=== PATIENT | female | born 1930 | race Caucasian/White ===

== ENCOUNTER → 2017-02-17 | Outpatient (CLI) | payer MEDICARE ==
[~2017-02-17] MED LIST: ALIGN4 MG PO; ALLEGRA PO; ASMANAX; ASMANEX0.135 GM IH; ASPIRIN PO; AZELASTINE; CEFTAZIDIME IJ; CELEBREX PO; CENTRUM PO; CENTRUM ULTRA1 EACH PO; CITRACAL + D CA1 TA1 PO; CITRACAL200 M1 PO; DICYCLOMINE PO; EFFER-K 20 MEQ20 MEQ PO; FLUNISOLIDE NASAL; MUCINEX PO; NEURONTIN PO; NON-ASPIRIN EX500 M2 PO; OCUVITE PO; OCUVITE TABLET1 TA1 PO; OMNARIS12.5 GM IH; OMNARIS12.5 GM NS; SINGULAIR PO; SINGULAR PO; SYNTHROID PO; SYNTHROID88 MCG PO; SYSTANE 0.3-0.415 ML OU; TAMIFLU75 M1 PO; TRAMADOL PO; ULTRAM ER200 MG PO; ULTRAM PO; VITAL-D RX TABL1 TAB PO; VITAMIN D1000 UNI1 PO; ZYRTEC10 M1 PO; [UNRECOGNIZED DRUG - OTHER]; [UNRECOGNIZED DRUG - OTHER] IJ
--- NOTE | ~2017-02-17 | CT57 ---
[facility] A Service of [facility] & [facility] RADIOLOGY TEXT RESULTS PATIENT: MARGARITA HAWK LOCATION: [facility] : 30 UNIT #: [id number] AGE: [address]: Love Cisneros SEX: F ORDER DR: [id number] [address] [id number] [id number] P MR#: [id number] Acc #: [id number] NAME: MARGARITA HAWK : 1930 SEX: F STUDY DATE/TIME: 02/17/2017 10:50 UNIT: [facility] ROOM: STUDY DESCRIPTION: CT Chest Wo Cont Attending Physician: Love Cisneros A.P.R.N. Ordering Physician: Love Cisneros A.P.R.N. Primary Care Physician: Caryn Sweeney M.D. MEDICAL IMAGING REPORT This report is preliminary unless electronic signature is present. EXAM CT chest without contrast high resolution, 02/17/2017 10:50 hours HISTORY 87-year-old woman with history of cough, bronchitis for several years. Abnormal chest x-ray, evaluate for interstitial lung disease. COMPARISON Chest CT 10/19/2006 and portable chest exam 06/27/2011, chest x-ray 10/07/2016. TECHNIQUE Routine helical noncontrasted images were obtained from the thoracic inlet through the upper abdomen. Patient then underwent high-resolution exam with 1.0 mm thick high-resolution images at 10.0 mm intervals at full inspiration in the supine position. Similar high-resolution expiratory phase images were obtained at the arch, alex and lung bases. The patient was turned to the prone position for high-resolution images through the lung bases only. No contrast was administered. Total exam DLP 311 mGy-cm. This CT exam was performed with one or more of the following radiation dose reduction techniques: automatic exposure control, adjustment of mA and/or kV according to patient size, and iterative reconstruction. FINDINGS The routine helical chest CT demonstrates no thyroid mass or supraclavicular adenopathy. 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 There are coarse coronary calcifications. Cardiac chambers and pericardium are normal. There is a small hiatal hernia. [facility]. [facility] A Service of [facility] RADIOLOGY TEXT RESULTS PATIENT: MARGARITA HAWK LOCATION: [facility] : 30 UNIT #: [id number] AGE: [address]: Love Cisneros SEX: F ORDER DR: The routine lung window exam demonstrates areas of band-like scarring at the apices, increased from 2007. There are peripheral reticular nodular densities in both upper lobes and lower lobes resulting in traction bronchiectasis most prominent in the left upper lobe in the lingula, medially in the right middle lobe with diffuse peribronchiolar wall thickening seen in the left lower lobe greater than right lower lobe. These changes were partially present on the 2007 CT but have progressed, particularly in the left lower lobe. There is no suspicious mass. The biapical scarring is new or increased. The high-resolution exam demonstrates moderate centrilobular emphysema with large blebs or bullae. There is mild air trapping on the expiratory phase images. 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 There is no adrenal mass. There are calcified granulomatous changes. IMPRESSION 1. Abnormal chest CT with reticulonodular changes superimposed upon moderate centrilobular emphysema. These findings result in traction bronchiectasis most prominent in the right lung in the region of the right middle lobe and proximal right lower lobe and in the lingular segment of the left upper lobe. There is peribronchiolar wall thickening and bronchiectasis in the left lower lobe greater than right lower lobe. Some of these findings were present on the 2007 CT, however the findings have clearly increased over the 10-year interval. There is no evidence of usual interstitial pneumonia. 2. No pathologic adenopathy. 3. There is no evidence of mass or acute pneumonia. 4. Limited views through the upper abdomen are negative. Dictated by... Lucy Mayen M.D. THIS IS AN ELECTRONICALLY VERIFIED REPORT Lucy Mayen M.D. at 02/17/2017 2:28 PM Gaudencio TD: 02/17/2017 12:51 JOB #: [id number] MEDICAL IMAGING REPORT Page 1 of 1
== END | disposition home or self-care (01) ==
LOC: SCT 10:30 → CCAT 14:30 → SCT 14:30
DX: R93.8 Abnormal findings on diagnostic imaging of other specified body structures (principal); J43.2 Centrilobular emphysema; J47.9 Bronchiectasis, uncomplicated
CPT/HCPCS: 71250